=== PATIENT | female | born 1980 | race Caucasian/White ===

== ENCOUNTER 2023-03-31 16:00 | Outpatient (CLI) | payer BC | END 2023-03-31 16:01 | disposition home or self-care (01) | LOC: SLEEPLAB 16:00 | PROVIDERS: ATTEND Nurse Practitioner | DX: G47.419 Narcolepsy without cataplexy (principal); R53.83 Other fatigue; F32.A Depression, unspecified; R40.0 Somnolence; R06.83 Snoring; G47.11 Idiopathic hypersomnia with long sleep time | CPT/HCPCS: 95810 ==

== ENCOUNTER 2023-04-01 06:00 | Outpatient (CLI) | payer BC | END 2023-04-01 06:01 | disposition home or self-care (01) | LOC: SLEEPLAB 06:00 | PROVIDERS: ATTEND Nurse Practitioner | DX: G47.419 Narcolepsy without cataplexy (principal); F32.A Depression, unspecified; R53.83 Other fatigue; R40.0 Somnolence | CPT/HCPCS: 95805 ==